=== PATIENT | male | born 1990 ===

== ENCOUNTER 2020-05-01 13:56 | Outpatient (CLI) | payer OTHER ==
[~2020-05-01 13:56] MED LIST: FIORICET PO
== END 2020-05-01 13:57 | disposition home or self-care (01) ==
LOC: PPH VACUNA 13:56
DX: Z23 Encounter for immunization (principal)

== ENCOUNTER → 2020-05-25 15:18 | Outpatient (CLI) | payer OTHER | END | disposition home or self-care (01) | LOC: LAB 15:18 | PROVIDERS: ATTEND General Practice | DX: R05 Cough (principal); J02.8 Acute pharyngitis due to other specified organisms ==